=== PATIENT | male | born 1940 | race Caucasian/White ===

== ENCOUNTER → 2021-08-13 | Outpatient (CLI) | payer MEDICARE ==
[~2021-08-13] MED LIST: ASPIRIN EC81 MG PO; CATAPRES 0.1MG0.1 MG PO; COMBIVENT0.074 GM/I INH; CYCLOBENZAPRINE10 MG PO; FISH OIL 1,0001 EACH PO; FLEXERIL 10 MG10 MG PO; FLONASE 0.05% N16 GM; GLUCOPHAGE1000 MG PO; HYDROCHLOROTH12.5 MG PO; HYDROCODON-ACE1 EAC2 PO; LASIX20 MG PO; LASIX40 MG PO; LIPITOR TAB 2020 MG PO; LOPRESSOR100 MG PO; LORCET PLUS 7.1 EACH PO; MEDROL4 MG PO; METFORMIN HCL1000 MG PO; NICOTINE PATCH1 EACH TD; NORVASC 5 MG TAB5 MG PO; PROTONIX40 MG PO; SALINE NOSE SPR45 ML; SYNTHROID25 MCG PO; TOPROL XL100 MG PO; VITAMIN D1000 UNI1 PO
== END ==
LOC: KOH-I 10:52
DX: F17.210 Nicotine dependence, cigarettes, uncomplicated (principal)
CPT/HCPCS: 71271

== ENCOUNTER 2021-08-27 11:24 | Emergency (ER) | payer MEDICARE ==
[2021-08-27 12:12] LABS: HEMOGLOBIN 11.9 gm/dl (14.0-17.5); RED BLOOD COUNT 4.18 M/UL (4.20-5.50); WHITE BLOOD COUNT 5.4 K/UL (4.5-11.0)
[2021-08-27] MEDS ORDERED: FUROSEMIDE40 MG PO (13:49)
== END 2021-08-27 14:16 | disposition home or self-care (01) ==
LOC: ER1 11:24
PROVIDERS: Emergency Medicine
DX: I11.0 Hypertensive heart disease with heart failure (principal); I50.9 Heart failure, unspecified; Z87.891 Personal history of nicotine dependence; Z20.822 Contact with and (suspected) exposure to COVID-19
CPT/HCPCS: 71045; 80053; 83880; 84484; 85025; 86140; 93005; 96374; 99285; J2930; U0002

== ENCOUNTER → 2021-12-24 | Outpatient (CLI) | payer MEDICARE ==
[~2021-12-24] MED LIST changes: +FUROSEMIDE40 MG PO
[2021-12-24 09:42] LABS: HEMOGLOBIN 11.4 gm/dl (14.0-17.5); RED BLOOD COUNT 4.33 M/UL (4.20-5.50); WHITE BLOOD COUNT 4.7 K/UL (4.5-11.0)
[2021-12-25 07:11] LABS: A/G RATIO 1.3 (1.2-2.2); BILIRUBIN, TOTAL 0.6 mg/dL (0.0-1.2); CREATININE, SERUM 1.63 mg/dL (0.76-1.27); GLOBULIN, TOTAL 2.9 g/dL (1.5-4.5); POTASSIUM, SERUM 3.4 mmol/L (3.5-5.2); PROTEIN, TOTAL, SERUM 6.8 g/dL (6.0-8.5)
== END ==
LOC: US 08:32 → KOH-I 09:00 → US 09:00
PROVIDERS: Internal Medicine Nephrology
DX: N18.32 Chronic kidney disease, stage 3b (principal); E03.9 Hypothyroidism, unspecified; E55.9 Vitamin D deficiency, unspecified
CPT/HCPCS: 36415; 80053; 82570; 83970; 84100; 84156; 84443; 85027; 89050

== ENCOUNTER 2022-06-20 09:41 | Emergency (ER) | payer MEDICARE, OTHER ==
[2022-06-20 10:55] LABS: HEMOGLOBIN 11.6 gm/dl (14.0-17.5); RED BLOOD COUNT 4.13 M/UL (4.20-5.50); WHITE BLOOD COUNT 5.8 K/UL (4.5-11.0)
[2022-06-20] MEDS ORDERED: DOXYCYCLINE MO100 MG PO (15:13)
== END 2022-06-20 15:00 | disposition home or self-care (01) ==
LOC: ER1 09:41
PROVIDERS: Emergency Medicine
DX: M62.838 Other muscle spasm (principal); R53.1 Weakness; I10 Essential (primary) hypertension; F17.200 Nicotine dependence, unspecified, uncomplicated; R41.0 Disorientation, unspecified; Z90.89 Acquired absence of other organs; Z20.822 Contact with and (suspected) exposure to COVID-19
CPT/HCPCS: 80053; 82140; 83735; 85025; 99284; U0002